=== PATIENT | male | born 1955 | race African-American/Black ===

== ENCOUNTER 2020-03-08 23:51 | Emergency (ER) | payer MEDICAID, OTHER ==
[~2020-03-08] VITALS: Ht 177.8 cm; Wt 90.9 kg
[~2020-03-08 23:51] MED LIST: AMLO-258 PO; FURO20 PO; IBUP-2071 PO; LISI-618 PO; SILD25 PO; TAMS-1 PO
[2020-03-09] VITALS: BP 115/76
== END 2020-03-09 00:52 | disposition home or self-care (01) ==
LOC: EMS 23:51
DX: S00.93XA Contusion of unspecified part of head, initial encounter (principal); V89.2XXA Person injured in unspecified motor-vehicle accident, traffic, initial encounter; Y93.89 Activity, other specified; Y92.89 Other specified places as the place of occurrence of the external cause; Y99.8 Other external cause status
CPT/HCPCS: 99283; Z7502